=== PATIENT | male | born 1970 | race Two or more races ===

== ENCOUNTER 2017-03-22 17:37 | Emergency (ER) | payer SELFPAY ==
[2017-03-22 18:53] LABS: INFLUENZA A PATIENT NEGATIVE (NEGATIVE); INFLUENZA B PATIENT NEGATIVE (NEGATIVE); OBC FLU VALID
[2017-03-22] MEDS: AMOXICILLIN 250 MG CAPSULE. PO (20:03)
[2017-03-22] MEDS: LIDOCAINE 2% VISCOUS 15 ML SOLUTION. SWSW (20:03)
[2017-03-22] MEDS: DEXAMETHASONE SOD PHOS 20 MG/5 ML VIAL. IM (20:03)
[2017-03-23 07:15] LABS: NEGATIVE OBC STREP NEG; POSITIVE OBC STREP POS
== END 2017-03-22 20:07 | disposition home or self-care (01) ==
LOC: ER 17:37
DX: J02.0 Streptococcal pharyngitis (principal)
CPT/HCPCS: 71046; 87804; 87804-59; 87880; 96372; 99285-25; J1100